=== PATIENT | male | born 1955 | race Caucasian/White ===

== ENCOUNTER 2016-12-22 06:39 | Day surgery (SDC) ==
[2013-02-26 19:08] VITALS: BMI 33.7
[2016-12-22] MEDS ORDERED: LIDOCAINE 1% 20 ML MDV ID ONE (07:55)
[2016-12-22] MEDS ORDERED: DIPRIVAN 20 ML VIAL IVP ONE (10:21)
[2016-12-22] MEDS ORDERED: VERSED ONE (10:21)
[2016-12-22 11:39] VITALS: BP 161/78; TEMP 97.2
--- NOTE | 2016-12-23 09:22 | OP ---
INDICATIONS FOR PROCEDURE: 61-year-old gentleman with remote history of colon cancer presents for colonoscopy. He had adenomatous polyps on colonoscopy three years ago. MEDICATIONS: SEE ANESTHESIA NOTES. PROCEDURE: COLONOSCOPY. REPORT: The risks, benefits, alternatives and limitations were discussed in detail with the patient. Informed consent was obtained. After adequate sedation was achieved, a digital rectal exam revealed good tone, no masses. The colonoscope was introduced into the rectum and advanced under direct visual guidance to the cecum. The cecum was identified by the appendiceal orifice and IC valve. I then slowly withdrew the scope in a circumferential manner examining the mucosa quite carefully. I looked on the proximal and distal side of folds and flexures as best as possible. I was able to retroflex the scope in the right colon and the left colon to increase visualization. Colonic mucosa was unremarkable its entire length. Identified the anastomosis in the rectosigmoid area. I did see a few diverticula in the sigmoid as well. No other abnormalities were noted including on retroflex view of the anal canal. The prep was good. Withdrawal time was 7 minutes and 2 seconds. The patient tolerated the procedure well. Stable vital signs and pulse oximetry throughout. IMPRESSION: 1. SCANT DIVERTICULOSIS. RECOMMENDATIONS: 1. High fiber diet. 2. Office visit as needed. 3. Colonoscopy examination again in 3 years, sooner if signs or symptoms indicate otherwise. CC: DR. LUIS HOOPER
== END 2016-12-22 11:58 | disposition home or self-care (01) ==
LOC: SURG 06:39
PROVIDERS: ATTEND Internal Medicine Gastroenterology
DX: Z08 Encounter for follow-up examination after completed treatment for malignant neoplasm (principal); Z85.038 Personal history of other malignant neoplasm of large intestine; Z86.010 Personal history of colon polyps; K57.30 Diverticulosis of large intestine without perforation or abscess without bleeding

== ENCOUNTER 2017-05-29 20:21 | Emergency (ER) ==
[2017-05-29 20:35] VITALS: TEMP 97.4; BMI 34.7
--- NOTE | 2017-05-29 21:17 | ED.PDOC ---
General ED Provider: Dr. TIM GILL Chief Complaint: Fall Stated Complaint: Patient has been drinking today, fell back and injured head, no LOC. awake, says he wants to drink some water. Time Seen by Physician: 21:15 Mode of Arrival: Ambulance Information Source: Patient, Family Primary Care Provider: LUIS SPENCER Nursing and Triage Documentation Reviewed and Agree: Yes Trauma/Injury Complaint Exam - Head Injury Complaint/Exam Location of Pain: Reports: Scalp Mechanism of Injury: Reports: Trauma Symptoms Are: Still present Initial Severity: Mild Current Severity: Mild Character: Reports: Dull Aggravating: Reports: None Alleviating: Reports: None Associated Signs and Symptoms: Denies: Confusion, Memory loss, Seizure, Epistaxis, Dental malocclusion, Neck pain, Nausea, Vomiting Loss of Consciousness: None SDH Risk Factors: Present: None Cervical Spine Injury Risk Factors: Present: None Related Surgical History: Reports: None Immobilization Removed Post Exam: No Head Injury Findings: Present: Normal findings Focal Weakness: Present: None Focal Sensory Loss: Present: None Gait: Unsteady (etoh) Gag Reflex Present: Yes Finger to Nose: Normal Rhomberg Test Positive: No Babinski Sign: Negative Right, Negative Left Differential Diagnoses: Intracranial Bleed, Trauma Review of Systems - Review Of Systems Constitutional: Reports: No symptoms Eyes: Reports: No symptoms Ears, Nose, Mouth, Throat: Reports: No symptoms Respiratory: Reports: No symptoms Cardiac: Reports: No symptoms GI: Reports: No symptoms : Reports: No symptoms Musculoskeletal: Reports: Back pain, Neck pain Skin: Reports: No symptoms Neurological: Reports: Headache Endocrine: Reports: No symptoms Hematologic/Lymphatic: Reports: No symptoms All Other Systems: Reviewed and Negative Past Medical History - Past Medical History Previously Healthy: Yes Endocrine: Reports: None Cardiovascular: Reports: None Respiratory: Reports: COPD Hematological: Reports: None Gastrointestinal: Reports: None Genitourinary: Reports: None Neuro/Psych: Reports: Depression Musculoskeletal: Reports: None Cancer: Reports: None - Surgical History General Surgical History: Reports: None - Family History Family History: Reports: None - Social History Smoking Status: Current every day smoker, Light tobacco smoker Smoking Cessation Counseling Time: > 3 min - 10 min Hx Substance Use: Yes (ALCOHOL) - Immunizations Tetanus Shot up to Date: Yes Physical Exam - Physical Exam Appearance: Ill-appearing, Obese Eyes: EOMI, Conjunctiva clear ENT: Ears normal, Nose normal, Oropharynx normal Respiratory: Airway patent, Breath sounds clear, Breath sounds equal, Respirations nonlabored Cardiovascular: RRR, Pulses normal, No rub, No murmur GI/: Soft, Nontender, No masses, Bowel sounds normal, No Organomegaly Musculoskeletal: Normal strength, ROM intact, No edema, No calf tenderness Skin: Warm, Dry, Normal color Neurological: Sensation intact, Motor intact, Reflexes intact, Cranial nerves intact, Alert, Oriented Psychiatric: Affect appropriate, Mood appropriate Interpretation - Radiology Interpretation Radiology Interpretation By: Radiologist Radiology Results: Negative Exam Interpreted: CT Scan Critical Care Note - Critical Care Note Total Time (mins): 30 Course - Course Orders, Labs, Meds: Orders Category Date Time Status CT CERVICAL SPINE W/O CONTRAST Stat RADS 05/29/17 21:[address] HEAD W/O CONTRAST Stat RADS 05/29/17 21:14 Completed Vital Signs: Temp Pulse Resp BP Pulse Ox 05/29/17 22:08 66 126/70 95 05/29/17 20:22 97.4 F L 70 24 149/81 H 95 Departure - Departure Time of Disposition: 21:20 Disposition: HOME SELF-CARE Discharge Problem: Head injury Qualifiers: Encounter type: initial encounter Qualified Code(s): S09.90XA - Unspecified injury of head, initial encounter Instructions: Head Injury (ED) Condition: Good Pt referred to PMD for follow-up: No Additional Instructions: Increase hydration Fall risk discussed Allergies/Adverse Reactions: Allergies No Known Allergies Allergy (Verified 05/29/17 20:34) Home Medications: Ambulatory Orders Aspirin [Aspirin EC] 81 mg PO DAILY 02/26/13 Calcium Carbonate/Vitamin D3 [Calcium 600 + Vit D 400 Tablet] 1 tab PO DAILY [place]-3 Fatty Acids/Fish Oil [Fish Oil 1,000 mg Capsule] 1 cap PO DAILY Triamterene/Hydrochlorothiazid [Dyazide] 10 mg PO DAILY 02/26/13 Budesonide/Formoterol Fumarate [Symbicort 80-4.5 Mcg Inhaler] 2 puff IH BID Cholecalciferol (Vitamin D3) [Vitamin D3] 1,000 unit PO DAILY 12/22/16 Fluoxetine HCl [Prozac] 20 mg PO DAILY 12/22/16 Hydrocodone/Acetaminophen [Hydrocodon-Acetaminophen 5-325] 1 each PO TID Tiotropium [place] [Spiriva] 1 cap IH DAILY 12/22/16 Triamterene/Hydrochlorothiazid [Maxzide 37.5 mg-25 mg Tablet] 1 each PO DAILY Disposition Discussed With: Patient, Family
--- NOTE | 2017-05-29 21:50 | CT ---
EXAM: Noncontrast CT head. HISTORY: Injury with pain. COMPARISON: 01/03/2011 TECHNIQUE: Noncontrast CT head was performed with axial, coronal and sagittal reconstructions. Findings: There is preservation of the cai-white differential without evidence of definitive large vessel acut e cortical infarct identified. No acute intracranial hemorrhage is identified. No midline shift is i dentified. No definitive intracranial mass lesion is identified within technical limitations of nonco ntrast CT. The basal cisterns are patent. The ventricles are normal in size and configuration. Limi guevara evaluation of the skull demonstrates no visualized lucent skull acute fractures or destructive os seous lesions identified within the visualized portions of the skull. Partially visualized paranasal sinuses and mastoid air cells a demonstrates mild mucosal thickening at the partially visualized max illary sinuses. Impression: 1. No acute intracranial hemorrhage identified.
--- NOTE | 2017-05-29 22:02 | CT ---
EXAM: Noncontrast CT of the cervical spine. HISTORY: Injury and pain. COMPARISON: 01/02/2011 TECHNIQUE: Noncontrast CT of the cervical spine was performed with axial, coronal and sagittal recons tructions were obtained and reviewed. FINDINGS: Sagital reconstructions demonstrate straightening of the cervical lordosis without significant listhe sis.. Coronal reconstructions demonstrate normal AP spinal alignment. No acute cervical spinal fractures ar e identified. There is preservation of the normal cervical vertebral body heights. Paravertebral soft tissues are without paravertebral fluid collections, hematomas or masses identified on limited evalu ation. C2-3:The central canal appears patent. There is minimal left greater than right neural foraminal deshawn rowing due to left greater than right facet joint degenerative hypertrophy. C3-4:The central canal appears patent. The bilateral bony neural foramen appear patent C4-5:There is mild intervertebral disc height loss suggesting degenerative disc disease. There is mi ld appearing central canal narrowing due to a posterior disc osteophyte complex. The bilateral bony neural foramen appear patent. C5-6:There is moderate intervertebral disc height loss suggesting degenerative disc disease. There i s mild appearing central canal narrowing due to a posterior disc osteophyte complex. There is mild b ilateral neural foraminal narrowing due to uncovertebral osteophyte formation C6-7:There is mild moderate intervertebral disc height loss with endplate osteophyte formation sugges ting degenerative disc disease. There is mild to minimal appearing central canal narrowing secondary to a posterior disc osteophyte complex seen. There is mild to moderate left and trace right neural foraminal narrowing due to uncovertebral osteophyte formation C7-T1:the the central canal and bilateral bony neural foramen appear patent. Facet joint degenerativ e changes are present. IMPRESSION: No acute fractures of the cervical spine identified. Cervical spine degenerative changes with elements of central canal and neural foraminal narrowing as detailed.
[2017-05-29 22:09] VITALS: BP 126/70
== END 2017-05-29 22:40 | disposition home or self-care (01) ==
LOC: ED 20:21
DX: S09.90XA Unspecified injury of head, initial encounter (principal); M54.9 Dorsalgia, unspecified; M54.2 Cervicalgia; W19.XXXA Unspecified fall, initial encounter; F17.210 Nicotine dependence, cigarettes, uncomplicated
CPT/HCPCS: 99283

== ENCOUNTER 2018-10-21 14:01 | Emergency (ER) ==
[2018-10-21 14:11] VITALS: BP 198/105; TEMP 99.6; BMI 35.0
--- NOTE | 2018-10-21 16:52 | DI ---
EXAM: Two views of the left shoulder. History: Left shoulder pain. Findings: No acute fracture or dislocation. Mild narrowing of the left AC joint and left glenohumer al joint. No abnormal calcifications or radiopaque foreign bodies. Impression: 1. No acute osseous abnormality. 2. Mild arthritis
--- NOTE | 2018-10-21 16:53 | DI ---
EXAM: Two views of the left clavicle. History: Left clavicle pain. Findings: No acute fracture or dislocation. No abnormal calcifications or radiopaque foreign bodies . Mild narrowing of the left AC joint and left glenohumeral joint. Impression: 1. No acute osseous abnormality. 2. Mild arthritis
--- NOTE | 2018-10-21 17:30 | ED.PDOC ---
General ED Provider: Dr. JAMIR OCAMPO Chief Complaint: Shoulder Pain/Injury Stated Complaint: shoulder pain clavicle pain after lifting a heavy object Time Seen by Physician: 14:00 Mode of Arrival: Walk-In Information Source: Patient Exam Limitations: No limitations Primary Care Provider: LUIS SPENCER Nursing and Triage Documentation Reviewed and Agree: Yes Does patient meet sepsis criteria?: Yes If yes, has appropriate treatment been initiated?: No System Inflammatory Response Syndrome: Not Applicable Sepsis Protocol: For patient's 13 years and over: Temp is 96.8 and below OR 101 and greater Pulse >90 BPM Resp >20/minute Acutely Altered Mental Status Are patient's symptoms suggestive of a new infection, such as: -Pneumonia -Skin, Soft Tissue -Endocarditis -UTI -Bone, Joint Infection -Implantable Device -Acute Abdominal Infection -Wound Infection -Meningitis -Blood Stream Catheter Infection -Unknown Musculoskeletal Complaint Exam - Shoulder Pain Complaint/Exam Mechanism of Injury: Reports: No known trauma, Other (lifting injury) Onset/Duration: today Symptoms Are: Still present Timing: Constant Initial Severity: Moderate Current Severity: Mild Location: Reports: Discrete Character: Reports: Dull Alleviating: Reports: Rest Aggravating: Reports: Movement, Lifting, Flexion, Extension, Internal rotation, External rotation, Abduction Associated Signs and Symptoms: Denies: Swelling, Redness, Bruising, Fever, Weakness, Numbness, Tingling Non-Orthopedic Risk Factors: Reports: None DVT Risk Factors: Reports: None Septic Arthritis Risk Factors: Reports: None Related Surgical History: Reports: None Shoulder Findings: Absent: Swelling, Ecchymosis, Ligamentous instability, Laceration, Erythema, Other joint pain, Foreign body, Adson's Sign Tenderness: Present: Clavicle, AC joint, Proximal humerus, Rotator cuff muscles Limited Range of Motion: Present: Adduction, Flexion, Extension, Internal rotation, External rotation, Rotator cuff muscles, Rotator cuff insertion Differential Diagnoses: Closed Fracture, Rotator Cuff Injury, Sprain Review of Systems - Review Of Systems Constitutional: Reports: No symptoms Eyes: Reports: No symptoms Ears, Nose, Mouth, Throat: Reports: No symptoms Respiratory: Reports: No symptoms Cardiac: Reports: No symptoms GI: Reports: No symptoms : Reports: No symptoms Musculoskeletal: Reports: Joint pain (shoulder ) Skin: Reports: No symptoms Neurological: Reports: No symptoms Endocrine: Reports: No symptoms Hematologic/Lymphatic: Reports: No symptoms All Other Systems: Reviewed and Negative Past Medical History - Past Medical History Previously Healthy: Yes Endocrine: Reports: None Cardiovascular: Reports: None Respiratory: Reports: COPD Hematological: Reports: None Gastrointestinal: Reports: None Genitourinary: Reports: None Neuro/Psych: Reports: Depression Musculoskeletal: Reports: None Cancer: Reports: None - Surgical History General Surgical History: Reports: None - Family History Family History: Reports: None - Social History Smoking Status: Current some day smoker Hx Substance Use: No Alcohol Screening: Heavy - Immunizations Tetanus Shot up to Date: Yes Physical Exam - Physical Exam Appearance: Well-appearing, No pain distress, Well-nourished Eyes: ZULLY, EOMI, Conjunctiva clear ENT: Ears normal, Nose normal, Oropharynx normal Respiratory: Airway patent, Breath sounds clear, Breath sounds equal, Respirations nonlabored Cardiovascular: RRR, Pulses normal, No rub, No murmur GI/: Soft, Nontender, No masses, Bowel sounds normal, No Organomegaly Musculoskeletal: Limited ROM (shoulder ) Skin: Warm, Dry, Normal color Neurological: Sensation intact, Motor intact, Reflexes intact, Cranial nerves intact, Alert, Oriented Psychiatric: Affect appropriate, Mood appropriate Interpretation - Radiology Interpretation Radiology Interpretation By: Radiologist Radiology Results: No acute changes Critical Care Note - Critical Care Note Total Time (mins): 0 Course - Course Orders, Labs, Meds: Orders Category Date Time Status CLAVICLE, LEFT 2 VIEWS Stat RADS 10/21/18 16:27 Completed SHOULDER, LEFT MIN 2V Stat RADS 10/21/18 16:27 Completed Vital Signs: Temp Pulse Resp BP Pulse Ox 10/21/18 14:01 99.6 F 75 20 198/105 H 94 L Departure - Departure Time of Disposition: 17:29 Disposition: HOME SELF-CARE Discharge Problem: Shoulder pain Instructions: Shoulder Pain (ED), Shoulder Sprain (ED), Rotator Cuff Injury (ED ) Condition: Good Pt referred to PMD for follow-up: Yes IPMP verified?: No Additional Instructions: Please call your Family Physician as soon as possible to schedule a follow-up appointment. Allergies/Adverse Reactions: Allergies No Known Allergies Allergy (Verified 05/29/17 20:34) Home Medications: Ambulatory Orders Aspirin [Aspirin EC] 81 mg PO DAILY 02/26/13 Calcium Carbonate/Vitamin D3 [Calcium 600 + Vit D 400 Tablet] 1 tab PO DAILY [place]-3 Fatty Acids/Fish Oil [Fish Oil 1,000 mg Capsule] 1 cap PO DAILY Triamterene/Hydrochlorothiazid [Dyazide] 10 mg PO DAILY 02/26/13 Budesonide/Formoterol Fumarate [Symbicort 80-4.5 Mcg Inhaler] 2 puff IH BID Cholecalciferol (Vitamin D3) [Vitamin D3] 1,000 unit PO DAILY 12/22/16 Fluoxetine HCl [Prozac] 20 mg PO DAILY 12/22/16 Hydrocodone/Acetaminophen [Hydrocodon-Acetaminophen 5-325] 1 each PO TID Tiotropium [place] [Spiriva] 1 cap IH DAILY 12/22/16 Triamterene/Hydrochlorothiazid [Maxzide 37.5 mg-25 mg Tablet] 1 each PO DAILY
== END 2018-10-21 17:38 | disposition home or self-care (01) ==
LOC: ED 14:01
DX: M25.512 Pain in left shoulder (principal); X50.0XXA Overexertion from strenuous movement or load, initial encounter; F17.210 Nicotine dependence, cigarettes, uncomplicated
CPT/HCPCS: 99282